=== PATIENT | female | born 1990 | race Caucasian/White ===

== ENCOUNTER 2022-05-06 11:05 | Emergency (ER) | payer OTHER, BC, SELFPAY ==
[2022-05-06 11:32] VITALS: BP 150/94; PULSE 85; RESP 16; TEMP 36.8; O2SAT 100
--- NOTE | 2022-05-06 12:19 | ED.GENADULT ---
HPI - General Adult General Chief complaint: Upper Respiratory Infection Stated complaint: Headache,Fatique Source: patient Mode of arrival: ambulatory Limitations: no limitations History of Present Illness HPI narrative: Patient presents for evaluation of sick symptoms for last 2 days. Symptoms include fatigue, body aches, neck soreness and sore throat. She denies any fever, chills, nausea, vomiting, significant cough, shortness of breath. No specific sick contacts to her knowledge however she does work in a school. No personal history of COVID. She has received COVID vaccination. She took some ibuprofen which did seem to help her symptoms. She is requesting a flu test. No additional complaints or concerns. Related Data Home Medications Medication Instructions Recorded Confirmed norethindrone 1 mg-ethinyl 1 tablet PO DAILY 01/03/21 05/06/22 estradiol 20 mcg (24)-iron 75 mg (4) tablet (Patricia 24 Fe) Allergies Allergy/AdvReac Type Severity Reaction Status Date / Time No Known Allergies Allergy Verified 05/06/22 11:28 Review of Systems Review of Systems: CONSTITUTIONAL: Reports fatigue.Denies fever, chills, or sweats. EYES: Denies visual changes, redness, or discharge. ENT: Reports sore throat. Denies otalgia. CARDIOVASCULAR: Denies chest pain, palpitations, or edema. RESPIRATORY: Denies cough or dyspnea. GASTROINTESTINAL: Denies abdominal pain, nausea, vomiting, or diarrhea. GENITOURINARY: Denies dysuria or hematuria. SKIN: Denies rash or itching. MUSCULOSKELETAL: Reports generalized body aches and neck soreness . NEUROLOGIC: Denies headache, numbness, dizziness, or weakness. PSYCHIATRIC: Denies anxiety or depression. [facility] Past Medical History Medical History Anxiety Surgical History Surgical History H/O dilation and curettage History of hip surgery History of tonsillectomy and adenoidectomy Family History Family History Mother Hypertension Father Patient's father is in good health Sibling Patient's sister is in good health Family history of allergic disorder Social History Social History Smoking status: Never smoker Second hand tobacco smoke exposure: No Alcohol intake: never Substance use: never Living arrangements: with family Gender identity (if verbalized by the patient): Female Sexual Orientation (if Verbalized by the Patient): Straight or Heterosexual Spiritual care concerns: No Exam Narrative: GENERAL: Well-appearing, well-nourished, and in no acute distress. HEAD: Normocephalic, atraumatic. EYES: PERRLA and EOMI. ENT: Nares clear, no rhinorrhea or epistaxis. Mucous membranes moist. Tonsils are absent. Posterior pharyngeal erythema present. Bilateral TMs pearly mota nonbulging NECK: Supple. No adenopathy or masses. No carotid bruits or JVD CHEST: Clear to auscultation. No respiratory distress. No wheezes rales or rhonchi HEART: Regular rate and rhythm. No murmur heard. Normal peripheral pulses. ABDOMEN: Soft, nontender, nondistended, normal active bowel sounds. EXTREMITIES: Normal range of motion. No edema. SKIN: Warm, dry, no rash. NEURO: No focal deficits. Alert and oriented x3. PSYCH: Normal mood and affect. Course Course Emergency Course: This is a 31-year-old female who presented for evaluation of sick symptoms. Flu and strep were both negative. Exam is consistent with acute viral syndrome. Advised on tvnp-pki-bprqjqy agents which may assist with symptoms including ibuprofen and Cepacol. Increase hydration. Follow up outpatient for further evaluation treatment go to the ER for worsening symptoms. Patient is in agreement plan of care. Level of Care: Express Care Visit Vital Signs Vi
== END 2022-05-06 12:40 | disposition home or self-care (01) ==
PROVIDERS: Emergency Provider Nurse Practitioner; PCP Internal Medicine
DX: B34.9 Viral infection, unspecified (principal)
CPT/HCPCS: 87081; 87804; 87880; 99213; G0463

== ENCOUNTER 2022-09-28 13:03 | Outpatient (CLI) | payer OTHER, BC, SELFPAY ==
--- NOTE | ~2022-09-28 | MR_ITS ---
EXAMINATION: MR hip RT w con DATE: 09/28/2022 14:41 INDICATION: Right hip pain TECHNIQUE: Magnetic resonance (MR) arthrogram of the right hip was performed following intra-articula r gadolinium contrast injection and without intravenous contrast. Details of the hip joint injection have been dictated separately. Sequences included small field of view of the right hip with axial and sagittal T1-weighted FS SE and T2-weighted FS FSE and coronal T1-weighted SE and T2-weighted FS FSE . Additional T1-weighted FGRE images in a radial pattern oriented orthogonal to the acetabular rim we re obtained for evaluation of the labrum. COMPARISON: None. FINDINGS: Bones/labrum/cartilage: Alignment is normal. There does appear to be bilateral anterior acetabular over coverage. There appea rs to be decreased anterosuperior right femoral head neck offset with minimal cystic change at the an terosuperior femoral head neck junction. Normal bone marrow signal. No fracture, avascular necrosis o r pathologic marrow replacing process. Amorphous mild increased T2 signal and minimally increased T1 signal at the right anterior acetabular labrum consistent with likely degeneration. No evident linear fluid or contrast signal extending to contact the articular surface to suggest a more well-defined l abral tear. Articular cartilage is normal. On the larger zdsiq-ev-hnuo images of the pelvis there are linear likely suture anchor tracks along the anterior rim of the left acetabulum suggesting prior le ft-sided acetabular labral repair. Fluid: Physiologic amount fluid in the left hip joint with large amount of injected contrast in the right hi p joint space. No loose osteochondral bodies identified at either hip. No bursitis or other abnormal fluid collections. Soft tissues: Normal and symmetric muscle bulk and signal in the pelvis and visualized proximal thighs. The bilater al iliopsoas, gluteal and proximal hamstring tendons are normal. 6 mm nabothian cyst at the cervix. T here is a tampon within the vaginal vault. Limited evaluation of visceral organs of the pelvis is oth erwise unremarkable. No pathologically enlarged pelvic/inguinal lymphadenopathy. IMPRESSION: 1. 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 2. Decreased anterosuperior right femoral head neck offset and bilateral increased anterior acetabula r over coverage, the former predisposing towards cam-type femoral acetabular impingement in the latte r predisposing towards pincer-type femoral acetabular impingement. Correlate for signs/symptoms of im pingement. 3. Suggestion of suture anchors related to a prior anterior left acetabular labral repair on the larg er sykad-po-jvjv images. Reviewed, dictated and finalized at location A. IMPRESSION: 1. 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 2. Decreased anterosuperior right femoral head neck offset and bilateral increa sed anterior acetabular over coverage, the former predisposing towards cam-type femoral acetabular impingement in the latter predisposing towards pincer-type femoral acetabular impingement. Correlate for signs/symptoms of impingement. 3. Suggestion of suture anchors related to a prior anterior left acetabular lab ral repair on the larger lwyak-je-yovo images.
--- NOTE | ~2022-09-28 | XR_ITS ---
EXAMINATION: XR fl inj hip RT for MR/CT DATE: 09/28/2022 14:14 INDICATION: Chronic right hip pain. TECHNIQUE: A time-out was performed to verify the patient's name, date of , and procedure to b e performed. The procedure including the risks, benefits, and alternatives was discussed with the pat ient. Risks discussed included bleeding and infection. The patient understood the risks and agreed to proceed. The skin overlying the right hip joint was prepped and draped in usual sterile fashion. A nesthetic was administered with 1% lidocaine subcutaneously. A 22 G needle was advanced under fluoro scopic guidance into the joint. Injection of 1 mL of Omnipaque 240 confirmed intra-articular positio n of the needle. Subsequently, injectate consisting of 12 mL of 2:1:1 mixture of sterile saline:Omni paque 240:1% lidocaine mixed 200:1 with 529 mg/mL Multihance gadolinium contrast was injected with in tra-articular position confirmed with intermittent fluoroscopy. The needle was removed and the entry site was cleaned and dressed. There were no immediate complications. Fluoroscopy exposure time was 0 .1 minutes. The total number of images was 7. FINDINGS: Real-time fluoroscopy demonstrates the needle in the right hip joint. Patient's pain prior to procedure:2/10. Patient's pain following the procedure: 2/10. IMPRESSION: 1. Successful right hip joint injection of dilute gadolinium contrast mixture for subsequent MRI arth rogram which will be dictated separately. Reviewed, dictated and finalized at location A. IMPRESSION: 1. Successful right hip joint injection of dilute gadolinium contrast mixture f or subsequent MRI arthrogram which will be dictated separately.
== END 2022-09-28 13:04 | disposition home or self-care (01) ==
PROVIDERS: PCP Internal Medicine
DX: M25.551 Pain in right hip (principal)
CPT/HCPCS: 20610; 73722; 77002; A9577; Q9966

== ENCOUNTER 2022-10-06 02:31 | Day surgery (SDC) | payer OTHER, BC, SELFPAY ==
[2022-10-04 11:57] VITALS: BMI 38.4
--- NOTE | 2022-10-04 12:01 | PC.NURSE ---
Report to the Outpatient Waiting Room, entrance under the green pavilion located off [facility], at time 12:30 on date 10/06/22. Planned Procedure Time: 2:30. Time changes happen often and if your time is changed the preop area will call you the afternoon before. - You and your visitor will be asked to self-screen and do not enter if you have any COVID symptoms. - A mask is optional within the hospital at this time. Patients may have clear liquids (water, carbonated beverages, clear teas, apple juice) until 3 hours prior to surgery with a maximum of 20 ounces. - No food from midnight until time of surgery Take the following medications with a SIP of water the morning of surgery: N/A DO NOT STOP ANY OF YOUR OTHER PRESCRIPTION MEDICATIONS PRIOR TO SURGERY ?EXCEPT THE FOLLOWING Medications to discontinue per physician: N/A Date to take last dose: N/A Please no make-up, nail telugu, hairspray, perfume, deodorant, or body powder the day of surgery. No jewelry (including any body piercings) or valuables the day of surgery, leave them at home. Please take a shower or bath the night before, or the morning of, surgery with an antibacterial soap. Wear comfortable, loose fitting clothing. - Jewelry must be removed prior to entering the operating room. Rings and piercings that are not removed may be cut off. - The hospital will not accept responsibility for valuables. - Please leave all valuables, including medications, at home the day of surgery. If you are going home after surgery, a licensed four horse hitch driver must drive you home. - NO public transportation without another adult if you receive anesthesia. - We recommend that an adult stay with you for 24 hours following discharge. - We also recommend that you do not drive, make important decision, drink alcoholic beverages, or take any drugs that were not prescribed by your health care provider for at least 24 hours after your discharge time. Follow any additional instructions given to you from your surgeon. If you or anyone in your household have experienced Covid symptoms in the past week, please notify your surgeon or the nurse liaison at the phone number below for possible testing. Telephone instructions given to PT - LEIDY TRAN and asked if any additional questions and then verbalized understanding. Patient advised to call surgeon office or pre surgery nurse liaison [phone] if any additional questions.
--- NOTE | 2022-10-05 07:51 | PM.IMHP ---
H&P: HPI History of Present Illness Date/Time: 10/05/22 07:51 Chief Complaint: excessive bleeding Narrative: this is a 31-year-old female with excessive bleeding. She had an ultrasound which showed thickened endometrium with some blood flow. Risks and benefits of hysteroscopy and dilatation curettage reviewed in great details. She received the ACOG handouts entitled hysteroscopy as well as dilatation curettage respectively. She had all questions answered and asked to proceed PMFSH Past Medical History Medical History Anxiety Surgical History Surgical History H/O dilation and curettage History of hip surgery History of tonsillectomy and adenoidectomy Family History Family History Mother Hypertension Father Patient's father is in good health Sibling Patient's sister is in good health Family history of allergic disorder Social History Social History Smoking status: Never smoker Second hand tobacco smoke exposure: No Alcohol intake: never Substance use: never Substance use type: does not use Lack of Transportation: No Lack of Food: Never True Current Housing: I Have Housing Concerned About Future Housing: No Difficulty Paying Gas/Electric Bills: No Difficulty Paying for Meds: No Currently Unemployed: No Education: Bachelor's Degree Difficulty w/ Childcare or Family Care: No Living arrangements: with family Gender identity (if verbalized by the patient): Female Sexual Orientation (if Verbalized by the Patient): Straight or Heterosexual Spiritual care concerns: No Meds Home Medications and Allergies Home Medications Medication Instructions Recorded Confirmed Type semaglutide (weight loss) 0.25 0.25 mg subcut WEEKLY 10/04/22 10/04/22 History mg/0.5 mL subcutaneous pen injector (Wedeannevy) sertraline 100 mg tablet 100 mg PO HS 10/04/22 10/04/22 History Allergies Allergy/AdvReac Type Severity Reaction Status Date / Time No Known Allergies Allergy Verified 10/04/22 11:56 Exam Const: General: cooperative, healthy appearing, comfortable and well groomed Nutritional Appearance: average body habitus Orientation/consciousness: oriented to person, oriented to place and oriented to time HENMT: Head: normal to inspection Resp: Effort & Inspection: normal respiratory effort Cardio: Rate: regular rate Rhythm: regular rhythm Heart sounds: S1 normal heart sound present and S2 normal heart sound present GI: Inspection: normal to inspection : External Female Exam: normal external appearance Speculum Exam - Vagina: normal appearance of the vagina Speculum Exam - Cervix: normal appearance of the cervix Bimanual exam- vagina & uterus: uterine size normal Bimanual Exam- Adnexa, other: normal adnexae Assessment and Plan Assessment and plan (1) Excessive bleeding: Code(s): R58 - Hemorrhage, not elsewhere classified Status: Acute Plan hysteroscopy/dilatation curettage
--- NOTE | 2022-10-05 13:55 | WPDANESEPPF ---
Anes - Initial Pre Proc Eval Procedure: Operation Date: 10/06/22 14:30 Proposed Procedures p Hysteroscopy, Dilation and Curettage - Ernie Hilario MD Date/Time: 10/05/22 13:55 Surgeon: Ernie Hilario MD Pre Op Diagnosis: excessive irregular bleeding Patient Data Age: 31 Gender: F Height: 1.57 m Weight: 95.25 kg Allergies Allergy/AdvReac Type Severity Reaction Status Date / Time No Known Allergies Allergy Verified 10/04/22 11:56 Home Medications Medication Instructions Recorded Confirmed Type semaglutide (weight loss) 0.25 0.25 mg subcut WEEKLY 10/04/22 10/04/22 History mg/0.5 mL subcutaneous pen injector (Wegovy) sertraline 100 mg tablet 100 mg PO HS 10/04/22 10/04/22 History hydrocodone 5 mg-acetaminophen 325 1 tablet PO Q4H PRN pain #20 tabs 10/06/22 Rx mg tablet Patient hx anesthesia problems: none Family hx anesthesia problems: none Results Review: All pre-operative results and documents have been reviewed as part of the pre-operative evaluation. FOR[facility]LY [facility] Past Medical History Medical History (Updated 10/05/22 @ 13:56 by Luke Roper MD) Anxiety Obesity, Class II, BMI 35-39.9 Surgical History Surgical History H/O dilation and curettage History of hip surgery History of tonsillectomy and adenoidectomy Family History Family History Mother Hypertension Father Patient's father is in good health Sibling Patient's sister is in good health Family history of allergic disorder Social History Social History Smoking status: Never smoker Second hand tobacco smoke exposure: No Alcohol intake: never Substance use: never Substance use type: does not use Lack of Transportation: No Lack of Food: Never True Current Housing: I Have Housing Concerned About Future Housing: No Difficulty Paying Gas/Electric Bills: No Difficulty Paying for Meds: No Currently Unemployed: No Education: Bachelor's Degree Difficulty w/ Childcare or Family Care: No Living arrangements: with family Gender identity (if verbalized by the patient): Female Sexual Orientation (if Verbalized by the Patient): Straight or Heterosexual Spiritual care concerns: No Anes - Eval Final PreProcedure Day of Procedure 10/05/22 13:55 Patient weight: overweight Heart: regular rate and rhythm Lungs: clear to auscultation and normal air movement Airway: Mallampati scale class II Neurological: alert and oriented Last oral intake: >/= 8 hours ASA classification: II Emergent: no Anesthetic plan: proceed Anesthesia type and monitoring: general GIVS and LMA Results Review: All pre-operative results and documents have been reviewed as part of the pre-operative evaluation. Informed Consent: The patient's anesthetic plan and its attendant risks and benefits were discussed with the patient/family/POA. Questions were solicited and answers provided to the satisfaction of the patient/family/POA.
--- NOTE | 2022-10-06 06:08 | WPDHPUPDATE1 ---
History and Physical Update Update Date/Time: 10/06/22 06:08 History and Physical has been reviewed, including an updated exam of the patient. There are NO changes in the patient's condition. Risks, benefits, and alternatives have been discussed and questions answered. Patient agrees to proceed with procedure.
[2022-10-06 12:19] VITALS: BP 160/124; PULSE 84; RESP 20; TEMP 36.7; O2SAT 100
[2022-10-06] MEDS: ACETAMINOPHEN 500 MG TABLET 1000 MG PO (12:35)
[2022-10-06] MEDS: LACTATED RINGERS 1,000 ML 30 ML IV CONT (12:37)
[2022-10-06 12:54] VITALS: BP 162/96
[2022-10-06] MEDS: LIDOCAINE HCL 1% LOCAL INJ 20 ML VIAL 10 ML INFILTRATE (13:27)
[2022-10-06 13:31] VITALS: BP 133/94; PULSE 76; RESP 16; O2SAT 94
--- NOTE | 2022-10-06 13:31 | W.PM.PROC2 ---
Procedure Note - Detailed Date of Procedure 10/06/22 Pre-op Diagnosis excessive irregular bleeding Post-op Diagnosis Same Procedure Performed Hysteroscopy / dilatation and curettage Surgeon Ernie Hilario MD Anesthesia MAC and Local Indications this is a 31-year-old female with irregular bleeding and thickened endometrium on ultrasound Findings irregular endometrial tissue with appearing tubal ostia Description of Procedure the patient was prepped draped in the sterile fashion placed dorsal position. Under excellent IV sedation weighted speculum placed fornix. Anterior lip of the cervix grasped with single-tooth tenaculum. 2.5cc of 1% xylocaine anesthesia placed at 2, 4, 8, 10:00 a.m. of the cervix. Uterus sounded to 8cm. Serial dilatation with fragmented dilators performed followed by passage of the the bead a hysteroscope using normal saline as visualizing medium. Thick irregular endometrial tissue was seen but no evidence of definitive pathology each fallopian tube os could be seen. The uterus was then scraped over the entire 360? with the IV to instrument. The instruments were withdrawn blood loss estimated at5cc. All sponge, needle, instrument counts were correct. There were no immediate complications Estimated Blood Loss 5 Drains No Packing No Pathology Yes Complications No immediate complications Condition Stable Disposition PACU
[2022-10-06 14:00] VITALS: BP 160/108; PULSE 68; RESP 16
[2022-10-06 14:30] VITALS: BP 152/98; PULSE 72; RESP 20
[2022-10-06] MEDS: oxyCODONE HCL (*CRX) 5 MG TAB IR PO (14:36)
[2022-10-06 15:00] VITALS: BP 147/80; PULSE 80; RESP 20
== END 2022-10-06 15:10 | disposition home or self-care (01) ==
PROVIDERS: PCP Internal Medicine; Visit Provider Obstetrics & Gynecology
PROC: 0U5B8ZZ Destruction of Endometrium, Via Natural or Artificial Opening Endoscopic (ICD-10-PCS; CPT 58563; principal; 2022-10-06 14:30)
DX: N92.1 Excessive and frequent menstruation with irregular cycle (principal); F41.9 Anxiety disorder, unspecified
CPT/HCPCS: 58558; 88305; A9270; J2250; J2704; J3010; J7120

== ENCOUNTER 2023-01-26 16:20 | Emergency (ER) | payer OTHER, BC, SELFPAY ==
[2023-01-26 16:34] VITALS: BP 148/86; PULSE 87; RESP 16; TEMP 36.3; O2SAT 100
--- NOTE | 2023-01-26 16:34 | ED.URI ---
HPI - URI/Sore Throat General Chief Complaint: Upper Respiratory Infection Stated Complaint: Strep test Time Seen by Provider: 01/26/23 16:35 Source: patient and RN notes reviewed Mode of arrival: ambulatory Limitations: no limitations History of Present Illness HPI Narrative: 32-year-old female presents with concern for exposure to strep throat. She reports she has exposure to strep throat at home, her daughter is positive. She reports she has been achy, had a headache, sore throat, runny nose. She has not taken any gdsy-owq-wneepbb medications for her symptoms MD elicited complaint: sore throat and rhinorrhea Related Data Allergies Allergy/AdvReac Type Severity Reaction Status Date / Time No Known Allergies Allergy Verified 12/20/22 14:20 Review of Systems Review of Systems: CONSTITUTIONAL: Denies malaise, chills, sweats, or fever. EYES: Denies visual changes, redness, or discharge. ENT: Reports rhinorrhea, sore throat. Denies congestion, sinus pain, otalgia CARDIOVASCULAR: Denies chest pain, palpitations, or edema. RESPIRATORY: Reports cough. Denies dyspnea. GASTROINTESTINAL: Denies abdominal pain, nausea, vomiting, diarrhea SKIN: Denies rash or itching. MUSCULOSKELETAL: Reports myalgia. NEUROLOGIC: Reports headache. All systems reviewed & are unremarkable except as noted in HPI and below PMFSH Past Medical History Medical History Anxiety Obesity, Class II, BMI 35-39.9 Surgical History Surgical History H/O dilation and curettage History of hip surgery History of tonsillectomy and adenoidectomy Family History Family History Mother Hypertension Father Patient's father is in good health Sibling Patient's sister is in good health Family history of allergic disorder Social History Social History Smoking status: Never smoker Second hand tobacco smoke exposure: No Alcohol intake: never Substance use: never Substance use type: does not use Lack of Transportation: No Lack of Food: Never True Current Housing: I Have Housing Concerned About Future Housing: No Difficulty Paying Gas/Electric Bills: No Difficulty Paying for Meds: No Currently Unemployed: No Education: Bachelor's Degree Difficulty w/ Childcare or Family Care: No Living arrangements: with family Gender identity (if verbalized by the patient): Female Sexual Orientation (if Verbalized by the Patient): Straight or Heterosexual Spiritual care concerns: No Comments At time of signature, agree with nursing past medical, surgical, social and family history. There is no relevant family history pertinent to the presenting complaint Exam Narrative: GENERAL: Well-appearing, well-nourished, and in no acute distress. HEAD: Normocephalic EYES: PERRLA, conjunctivae clear ENT: Nares clear. Mucous membranes moist. TM pearly mota with sharp light reflex bilaterally; no tragal tenderness. Oropharynx not erythematous without lesions. Tonsils not enlarged and without exudate, no drooling, no hoarseness, no trismus, uvula midline. NECK: Supple. No lymphadenopathy CHEST: Clear to auscultation, breath sounds equal. No wheezing, rhonchi, rales, or stridor. No respiratory distress, speaks in full sentences. HEART: Regular rate and rhythm. No murmur heard. SKIN: Warm, dry, no rash. NEURO: Alert and oriented x3. PSYCH: Normal mood and affect Course Course Emergency Course: Patient is aware of diagnosis, understands and agrees to treatment plan. Anticipatory guidance given. Patient agrees to follow-up as directed and is aware of reasons to seek care at the emergency department. Portions of this record may have been created with voice recognition software Level of Care: Express Care Visit Vital Signs Vital
== END 2023-01-26 16:47 | disposition home or self-care (01) ==
PROVIDERS: Emergency Provider Nurse Practitioner; PCP Internal Medicine
DX: J06.9 Acute upper respiratory infection, unspecified (principal); E66.9 Obesity, unspecified; Z68.34 Body mass index [BMI] 34.0-34.9, adult
CPT/HCPCS: 87081; 87880; 99213; G0463

== ENCOUNTER 2023-04-06 05:37 | Day surgery (SDC) | payer OTHER, BC, SELFPAY ==
--- NOTE | 2023-04-04 14:03 | PM.IMHP ---
H&P: HPI History of Present Illness Date/Time: 04/04/23 14:03 Chief Complaint: First-trimester incomplete Narrative: 32-year-old 3 para 2 in her 1st trimester with vaginal bleeding and abnormal by ultrasound imaging. The patient is here for suction dilatation curettage she continues to bleed. Risks and benefits reviewed [facility] Past Medical History Medical History Anxiety Obesity, Class II, BMI 35-39.9 Surgical History Surgical History H/O dilation and curettage History of hip surgery History of tonsillectomy and adenoidectomy Family History Family History Mother Hypertension Father Patient's father is in good health Sibling Patient's sister is in good health Family history of allergic disorder Social History Social History Smoking status: Never smoker Second hand tobacco smoke exposure: No Alcohol intake: never Substance use: never Substance use type: does not use Lack of Transportation: No Lack of Food: Never True Current Housing: I Have Housing Concerned About Future Housing: No Difficulty Paying Gas/Electric Bills: No Difficulty Paying for Meds: No Currently Unemployed: No Education: Bachelor's Degree Difficulty w/ Childcare or Family Care: No Living arrangements: with family Gender identity (if verbalized by the patient): Female Sexual Orientation (if Verbalized by the Patient): Straight or Heterosexual Spiritual care concerns: No Meds Home Medications and Allergies Home Medications Medication Instructions Recorded Confirmed Type sertraline 100 mg tablet 100 mg PO HS #90 tabs 10/26/22 01/26/23 Rx lisinopril 20 mg tablet 20 mg PO DAILY #90 tabs 12/20/22 01/26/23 Rx benzonatate 200 mg capsule 200 mg PO TID PRN cough #30 caps 02/01/23 Rx Allergies Allergy/AdvReac Type Severity Reaction Status Date / Time No Known Allergies Allergy Verified 12/20/22 14:20 Exam Const: General: cooperative, healthy appearing and comfortable Orientation/consciousness: oriented to person, oriented to place and oriented to time HENMT: Head: normal to inspection Resp: Effort & Inspection: normal respiratory effort Cardio: Rate: regular rate Rhythm: regular rhythm Heart sounds: S1 normal heart sound present and S2 normal heart sound present GI: Inspection: normal to inspection : External Female Exam: normal external appearance Speculum Exam - Vagina: normal appearance of the vagina and vaginal bleeding Speculum Exam - Cervix: normal appearance of the cervix Bimanual exam- vagina & uterus: enlarged Bimanual Exam- Adnexa, other: normal adnexae Assessment and Plan Assessment and plan (1) Incomplete : Code(s): O03.4 - Incomplete spontaneous without complication Status: Acute Plan Suction dilatation curettage
[2023-04-04 15:05] VITALS: BMI 36.6
--- NOTE | 2023-04-04 15:10 | PC.NURSE ---
Report to the Outpatient Waiting Room, entrance under the green pavilion located off [facility], at time 1100 on date 04/06/23. Planned Procedure Time: 1300. Time changes happen often and if your time is changed the preop area will call you the afternoon before. - You and your visitor will be asked to self-screen and do not enter if you have any COVID symptoms. - A mask is optional within the hospital at this time. Patients may have clear liquids (water, carbonated beverages, clear teas, apple juice) until 3 hours prior to surgery with a maximum of 20 ounces. - No food from midnight until time of surgery Take the following medications with a SIP of water the morning of surgery: LABETALOL, SERTRALINE DO NOT STOP ANY OF YOUR OTHER PRESCRIPTION MEDICATIONS PRIOR TO SURGERY ?EXCEPT THE FOLLOWING Medications to discontinue per physician: VITAMINS Date to take last dose: NO MORE UNTIL AFTER SURGERY Please no make-up, nail georgian, hairspray, perfume, deodorant, or body powder the day of surgery. No jewelry (including any body piercings) or valuables the day of surgery, leave them at home. Please take a shower or bath the night before, or the morning of, surgery with an antibacterial soap. Wear comfortable, loose fitting clothing. - Jewelry must be removed prior to entering the operating room. Rings and piercings that are not removed may be cut off. - The hospital will not accept responsibility for valuables. - Please leave all valuables, including medications, at home the day of surgery. If you are going home after surgery, a licensed lease purchase driver must drive you home. - NO public transportation without another adult if you receive anesthesia. - We recommend that an adult stay with you for 24 hours following discharge. - We also recommend that you do not drive, make important decision, drink alcoholic beverages, or take any drugs that were not prescribed by your health care provider for at least 24 hours after your discharge time. Follow any additional instructions given to you from your surgeon. If you or anyone in your household have experienced Covid symptoms in the past week, please notify your surgeon or the nurse liaison at the phone number below for possible testing. Telephone instructions given to PT - LEIDY TRAN and asked if any additional questions and then verbalized understanding. Patient advised to call surgeon office or pre surgery nurse liaison [phone] if any additional questions.
--- NOTE | 2023-04-06 06:41 | WPDHPUPDATE1 ---
History and Physical Update Update Date/Time: 04/06/23 06:41 History and Physical has been reviewed, including an updated exam of the patient. There are NO changes in the patient's condition. Risks, benefits, and alternatives have been discussed and questions answered. Patient agrees to proceed with procedure.
[2023-04-06 11:07] VITALS: BP 134/86; PULSE 72; RESP 16; TEMP 36.5; O2SAT 100
[2023-04-06] MEDS: ACETAMINOPHEN 500 MG TABLET 1000 MG PO (11:59)
--- NOTE | 2023-04-06 11:59 | WPDANESEPPF ---
Anes - Initial Pre Proc Eval Procedure: Operation Date: 04/06/23 13:00 Proposed Procedures p Suction Dilatation and Curettage - Ernie Hilario MD Date/Time: 04/06/23 11:59 Surgeon: Ernie Hilario MD Pre Op Diagnosis: missed AB Patient Data Age: 32 Gender: F Height: 1.57 m Weight: 90.7 kg Allergies Allergy/AdvReac Type Severity Reaction Status Date / Time No Known Allergies Allergy Verified 04/04/23 15:04 Home Medications Medication Instructions Recorded Confirmed Type sertraline 100 mg tablet 100 mg PO HS #90 tabs 10/26/22 04/04/23 Rx labetalol 100 mg tablet 100 mg PO BID 04/04/23 04/04/23 History jamxprbr-kol-qzhdw 120 mcg-dha 25 1 tablet PO DAILY 04/04/23 04/04/23 History mg-herb no.293 66.7 mg chew tablet (Alive Premium ) hydrocodone 5 mg-acetaminophen 325 1 tablet PO Q4H PRN pain #20 tabs 04/06/23 Rx mg tablet Patient hx anesthesia problems: post op nausea/vomiting Family hx anesthesia problems: none Results Review: All pre-operative results and documents have been reviewed as part of the pre-operative evaluation. [facility] Past Medical History Medical History Anxiety Obesity, Class II, BMI 35-39.9 Surgical History Surgical History H/O dilation and curettage History of hip surgery History of tonsillectomy and adenoidectomy Family History Family History Mother Hypertension Father Patient's father is in good health Sibling Patient's sister is in good health Family history of allergic disorder Social History Social History Smoking status: Never smoker Second hand tobacco smoke exposure: No Alcohol intake: never Substance use: never Substance use type: does not use Lack of Transportation: No Lack of Food: Never True Current Housing: I Have Housing Concerned About Future Housing: No Difficulty Paying Gas/Electric Bills: No Difficulty Paying for Meds: No Currently Unemployed: No Education: Bachelor's Degree Difficulty w/ Childcare or Family Care: No Living arrangements: with family Gender identity (if verbalized by the patient): Female Sexual Orientation (if Verbalized by the Patient): Straight or Heterosexual Spiritual care concerns: No Anes - Eval Final PreProcedure Day of Procedure 04/06/23 11:59 Patient weight: obese Heart: regular rate and rhythm Lungs: clear to auscultation Airway: Mallampati scale class II Neurological: alert and oriented Last oral intake: >/= 8 hours ASA classification: II Emergent: no Anesthetic plan: proceed Anesthesia type and monitoring: general GIVS and standard monitoring Results Review: All pre-operative results and documents have been reviewed as part of the pre-operative evaluation. Informed Consent: The patient's anesthetic plan and its attendant risks and benefits were discussed with the patient/family/POA. Questions were solicited and answers provided to the satisfaction of the patient/family/POA.
[2023-04-06 12:13] VITALS: BMI 36.9
[2023-04-06] MEDS: LACTATED RINGERS 1,000 ML 30 ML IV CONT (12:16)
[2023-04-06 12:24] LABS: Hematocrit 39.7 % (37.0-47.0); Hemoglobin 12.7 g/dL (12.0-15.0)
--- NOTE | 2023-04-06 13:42 | W.PM.PROC2 ---
Procedure Note - Detailed Date of Procedure 04/06/23 Pre-op Diagnosis missed AB Post-op Diagnosis Same Procedure Performed Suction dilatation and curettage Surgeon Ernie Hilario MD Anesthesia MAC and Local Indications This is a 32-year-old multiparous patient with 1st trimester with incomplete AB Findings Uterus sounded to 10cm. Tissue consistent with products of conception Description of Procedure Patient is prepped draped sterile fashion placed in the dorsal lithotomy position. Under excellent IV sedation weighted speculum placed in posterior fornix of vagina. Anterior lip of the cervix grasped with a single-tooth tenaculum. 2.5cc 1% xylocaine anesthesia placed at 2, 4, 8, 10:00 a.m. of the cervix. Uterus sounded 10cm. Serial dilatation with fragmented dilators performed followed by passage of the 10. Suction curette. Minimal tissue was able to be removed. The instruments withdrawn after good grating sound was heard patient went recovery in satisfactory condition and was to receive RhoGAM all sponge, needle, instrument counts were correct. Estimated Blood Loss 25 Drains No Packing No Pathology Yes Complications No immediate complications Condition Stable Disposition PACU
[2023-04-06 13:45] VITALS: BP 121/73; PULSE 76; RESP 12; O2SAT 95
[2023-04-06] MEDS: fentaNYL CITRATE INJ (*CRX) 100 MCG/2 ML VIAL 25 MCG IV PUSH (14:03)
[2023-04-06 14:15] VITALS: BP 127/72; PULSE 80
[2023-04-06] MEDS: RHO(D) IMMUNE GLOBULIN 300 MCG/2 ML SYRINGE IM (14:15)
[2023-04-06 14:45] VITALS: BP 134/74; PULSE 81
== END 2023-04-06 15:07 | disposition home or self-care (01) ==
PROVIDERS: Anesthesiology; PCP Internal Medicine; Visit Provider Obstetrics & Gynecology
PROC: (CPT 59820; principal; 2023-04-06 13:00)
DX: O02.1 Missed abortion (principal)
CPT/HCPCS: 59820; 36415; 85014; 85018; 85461; 86850; 86900; 86901; 88305; 90384; A9270; J2250; J2405; J2704; J2790; J3010; J7120

== ENCOUNTER 2023-07-14 10:22 | Emergency (ER) | payer OTHER, BC, SELFPAY ==
[2023-07-14 10:34] VITALS: BP 112/92; PULSE 65; RESP 18; TEMP 36.6; O2SAT 100
--- NOTE | 2023-07-14 10:44 | ED.URI ---
HPI - URI/Sore Throat General Chief Complaint: Upper Respiratory Infection Stated Complaint: COUGH/HEADACHE/CONGESTION Time Seen by Provider: 07/14/23 10:44 Source: patient Mode of arrival: ambulatory Limitations: no limitations History of Present Illness HPI Narrative: 32-year-old female presents with complaint of nasal congestion, sinus pressure, postnasal drainage, intermittent sore throat, fatigue for 8 days. Afebrile. Patient's child tested positive for influenza, requesting flu test. Taking qrdd-ouu-yecgnmg sinus medications without relief of symptoms. All systems reviewed and negative except as noted above. Related Data Home Medications Medication Instructions Recorded Confirmed labetalol 100 mg tablet 100 mg PO BID 04/04/23 04/06/23 qdfxbwvl-wwz-qltmq 120 mcg-dha 25 1 tablet PO DAILY 04/04/23 04/06/23 mg-herb no.293 66.7 mg chew tablet (Alive Premium ) Allergies Allergy/AdvReac Type Severity Reaction Status Date / Time No Known Allergies Allergy Verified 04/06/23 12:12 Review of Systems Review of Systems: CONSTITUTIONAL: Denies fever, chills, or sweats. reports fatigue. EYES: Denies visual changes, redness, or discharge. ENT: Reports rhinorrhea, congestion, sore throat. Denies otalgia. CARDIOVASCULAR: Denies chest pain, palpitations, or edema. RESPIRATORY: Reports cough. Denies dyspnea. GASTROINTESTINAL: Denies abdominal pain, nausea, vomiting, or diarrhea. GENITOURINARY: Denies dysuria or hematuria. SKIN: Denies rash or itching. MUSCULOSKELETAL: Denies back pain, joint pain, or myalgia. NEUROLOGIC: Denies headache, numbness, or weakness. PSYCHIATRIC: Denies anxiety or depression. All other systems reviewed are negative, except as documented in HPI. [facility] Past Medical History Medical History Anxiety Obesity, Class II, BMI 35-39.9 Surgical History Surgical History H/O dilation and curettage History of hip surgery History of tonsillectomy and adenoidectomy Family History Family History Mother Hypertension Father Patient's father is in good health Sibling Patient's sister is in good health Family history of allergic disorder Social History Social History Smoking status: Never smoker Second hand tobacco smoke exposure: No Alcohol intake: never Substance use: never Substance use type: does not use Lack of Transportation: No Lack of Food: Never True Current Housing: I Have Housing Concerned About Future Housing: No Difficulty Paying Gas/Electric Bills: No Difficulty Paying for Meds: No Currently Unemployed: No Education: Bachelor's Degree Difficulty w/ Childcare or Family Care: No Living arrangements: with family Gender identity (if verbalized by the patient): Female Sexual Orientation (if Verbalized by the Patient): Straight or Heterosexual Spiritual care concerns: No Comments At time of signature, agree with nursing past medical, surgical, social and family history. There is no relevant family history pertinent to the presenting complaint. Exam Narrative: GENERAL: This is a well-nourished, well-developed patient, in no apparent distress. HEAD: normocephalic, atraumatic. EYES: PERRL. Sclera clear/white. Vision is grossly intact. EARS: External ears normal, auditory canals clear and without drainage, TMs normal without perforation. Hearing grossly intact. NOSE: External nose normal with purulent nasal drainage, erythema and swelling to bilateral nares. Tenderness to bilateral maxillary sinus. THROAT: Mucous membranes moist, Postnasal drainage. NECK: Neck supple, non-tender without lymphadenopathy, masses or thyromegaly. CARDIOVASCULAR: Regular rate and rhythm without murmurs, gallops, or rub
== END 2023-07-14 10:57 | disposition home or self-care (01) ==
PROVIDERS: Emergency Provider Nurse Practitioner Family; PCP Internal Medicine
DX: J01.90 Acute sinusitis, unspecified (principal); E66.9 Obesity, unspecified; Z68.36 Body mass index [BMI] 36.0-36.9, adult
CPT/HCPCS: 87804; 99213; G0463

== ENCOUNTER 2023-10-01 07:58 | Emergency (ER) | payer OTHER, BC, SELFPAY ==
--- NOTE | ~2023-10-01 | XR_ITS ---
XR ankle LT min 3V 10/01/2023 08:42 Indication: Left ankle pain after fall Procedure: 4 views left ankle Comparison: 06/07/2019 Findings: There is a small osteochondroma originating from the proximal aspect of the fifth metatarsa l with adjacent ossific density. These findings are unchanged compared with 06/07/2019. No acute frac ture, subluxation or dislocation. Ankle mortise intact. No significant soft tissue abnormality. No fo reign body. Talar dome is unremarkable. Impression: 1: No acute fracture. Reviewed, dictated and finalized at location B. Impression: 1: No acute fracture.
[2023-10-01 08:03] VITALS: BP 132/99; PULSE 82; RESP 17; TEMP 36.4; O2SAT 100
--- NOTE | 2023-10-01 08:21 | ED.LOWEXIN ---
HPI - Extremity Injury (Lower) General Chief Complaint: Extremity Injury, Lower Stated Complaint: left ankle injury Time Seen by Provider: 10/01/23 08:20 Source: patient and other Mode of arrival: ambulatory Limitations: no limitations History of Present Illness HPI Narrative: Patient is complaining of left lateral ankle pain after she tripped and fell down 2 steps. She heard a pop. No paresthesias. She has not yet taken anything for pain. She describes the pain as a throbbing located just behind the lateral malleolus. Pain radiates slightly superiorly though not beyond mid calf. Related Data Home Medications Medication Instructions Recorded Confirmed magnesium citrate 100 mg tablet 100 mg PO DAILY 08/27/23 08/27/23 Allergies Allergy/AdvReac Type Severity Reaction Status Date / Time No Known Allergies Allergy Verified 10/01/23 07:59 [facility] Past Medical History Medical History Anxiety Obesity, Class II, BMI 35-39.9 Surgical History Surgical History H/O dilation and curettage History of hip surgery History of tonsillectomy and adenoidectomy Family History Family History Mother Hypertension Father Patient's father is in good health Sibling Patient's sister is in good health Family history of allergic disorder Social History Social History Smoking status: Never smoker Second hand tobacco smoke exposure: No Alcohol intake: never Substance use: never Substance use type: does not use Lack of Transportation: No Lack of Food: Never True Current Housing: I Have Housing Concerned About Future Housing: No Difficulty Paying Gas/Electric Bills: No Difficulty Paying for Meds: No Currently Unemployed: No Education: Bachelor's Degree Difficulty w/ Childcare or Family Care: No Living arrangements: with family Gender identity (if verbalized by the patient): Female Sexual Orientation (if Verbalized by the Patient): Straight or Heterosexual Spiritual care concerns: No Exam Narrative: GENERAL: Well-appearing, well-nourished, and in no acute distress. HEAD: Normocephalic, atraumatic. EYES: Non injected, non icteric ENT: Nares clear, no rhinorrhea or epistaxis. NECK: Supple. CHEST: Speaking in full sentences. No respiratory distress. HEART: Regular rate and rhythm. . ABDOMEN: Soft, nondistended. EXTREMITIES: Normal range of motion. 1+ edema left foot. Warm and well perfused. Demonstrates 5/5 strength with left ankle plantar flexion, dorsiflexion, eversion, and inversion. Tenderness to palpation at the posterior edge/tip of lateral malleolus. No TTP of proximal tiba/fibula. Compartments soft. SKIN: Warm, dry, no rash. NEURO: No focal deficits. Alert and oriented x3. Sensation intact throughout foot. PSYCH: Normal mood and affect. Course Vital Signs Vital signs: Vital Signs Temperature 97.6 F 10/01/23 08:03 Pulse Rate 82 10/01/23 08:03 Respiratory Rate 17 10/01/23 08:03 Blood Pressure 132/99 H 10/01/23 08:03 Pulse Oximetry 100 10/01/23 08:03 Oxygen Delivery Room Air 10/01/23 08:03 Temperature 97.6 F 10/01/23 08:03 Pulse Rate 73 10/01/23 09:21 Respiratory Rate 17 10/01/23 09:21 Blood Pressure 121/88 10/01/23 09:21 Pulse Oximetry 99 10/01/23 09:21 Oxygen Delivery Room Air 10/01/23 08:03 MDM - Extremity Injury (Lower) MDM Narrative Medical decision making narrative: Patient presents with left ankle pain after accidentally falling down 2 steps and hearing a pop earlier today. TTP at Lateral malleolus. In the emergency department she is afebrile with vital signs notable for an elevated diastolic blood pressure. Will defer more proximal imaging given absence of pain there unless initial i
[2023-10-01] MEDS: ACETAMINOPHEN 325 MG TABLET 650 MG PO (08:32)
[2023-10-01] MEDS: HYDROcodone/acetaminophen (*CRX) 5-325 MG TABLET 1 TAB PO (08:33)
[2023-10-01 09:21] VITALS: BP 121/88; PULSE 73; RESP 17; O2SAT 99
== END 2023-10-01 09:28 | disposition home or self-care (01) ==
PROVIDERS: Emergency Provider Student in an Organized Health Care Education/Training Program; PCP Internal Medicine
DX: S93.402A Sprain of unspecified ligament of left ankle, initial encounter (principal); E66.9 Obesity, unspecified; Z68.36 Body mass index [BMI] 36.0-36.9, adult; W10.9XXA Fall (on) (from) unspecified stairs and steps, initial encounter
CPT/HCPCS: 73610; 99283; A9270

== ENCOUNTER 2024-12-25 15:39 | Emergency (ER) | payer BC, SELFPAY ==
--- NOTE | ~2024-12-25 | XR_ITS ---
HISTORY: fell off chair COMPARISON: 10/01/2023 TECHNIQUE: 3 views of the left ankle were performed FINDINGS: No acute fracture or dislocation. Redemonstration of lateral soft tissue swelling. The ankle mortise is preserved. Bone mineralization is age-appropriate. IMPRESSION: Soft tissue swelling, without acute fracture. Reviewed, dictated and finalized at location A.
--- NOTE | ~2024-12-25 | XR_ITS ---
HISTORY: left foot pain, injury COMPARISON: 06/07/2019 TECHNIQUE: 3 views of the left foot were performed FINDINGS: Bipartite medial sesamoid of the great toe is identified. No acute fracture or dislocation is appreciated. No significant degenerative disease is noted. The base of the fifth metatarsal is intact. No calcaneal spur is noted. Soft tissue swelling of the forefoot. IMPRESSION: Soft tissue swelling without fracture. Reviewed, dictated and finalized at location A.
[2024-12-25 15:40] VITALS: BP 136/88; PULSE 88; RESP 16; O2SAT 99
--- OUTSIDE RECORDS SUMMARY | 2024-12-25 15:41 | XMS_ITS | Clinical Summary ---
Author Organization [facility] Address [address] [place] [address] Care Team Providers Care Farm Equipment Technician Name Role Phone Jerson Amol Landers DO Primary Care Provider Source Comments [facility],non-owned Affiliates and Associated Physician Practices is amultiple site organization consisting of ambulatory clinics and hospital sitesin [place], [place], [place] and [place]. This disclosure is being madepursuant to the Care Everywhere program and may not contain all information available regarding this patient. Last updated 18.[facility] Allergies No known active allergies Medications * Be aware that medications may not be up to date on this document. Alwaysverify current medications with the patient. sertraline (ZOLOFT) 100 MG tablet Take 100 mg by mouth once daily Active Social History Tobacco Use Types Packs/Day Years Used Date Smoking Tobacco: Never Smokeless Tobacco: Never Comments No Sex and Gender Information Value Date Recorded Sex Assigned at Not on file Legal Sex Female 12:49 PM CDT Gender Identity Not on file Sexual Orientation Not on file Last Filed Vital Signs Vital Sign Reading Time Taken Comments Blood Pressure 110/64 07/11/2018 3:23 PM [facility] Pulse 80 07/11/2018 3:23 PM [facility] Temperature 36.9 C (98.4 F) 07/11/2018 3:23 PM [facility] Respiratory Rate 16 07/11/2018 3:23 PM [facility] Oxygen Saturation 98% 07/11/2018 3:23 PM [facility] Inhaled Oxygen Concentration - - Weight 81.6 kg (180 lb) 07/11/2018 3:23 PM [facility] Height 157.5 cm (5' 2) 07/11/2018 3:23 PM [facility] Body Mass Index 32.92 07/11/2018 3:23 PM [facility] Plan of Treatment Health Maintenance Due Date Last Done Comments HIV SCREENING 2005 HEPATITIS C SCREENING 10/02/2008 DTAP/TDAP/TD VACCINES (1 - Tdap) 2009 HEPATITIS B VACCINE (1 of 3 - 19+ 3-dose series) 2009 PAP SMEAR 10/08/2011 HPV VACCINE (1 - 3-dose SCDM series) 2017 COVID-19 VACCINE (3 - 2023-2 5 season) 2024 08/21/2020, 07/24/2020 DEPRESSION SCREENING 06/04/2024 INFLUENZA VACCINE (#1) 2025 03/11/2018 ZOSTER VACCINE (1 of 2) 2040 HIB VACCINE Aged Out No longer eligi ble based on patient's age to complete this topic MENINGOCOCCAL (Group B) VACCINE SHARED DECISION-MAKING Aged Out No longer eligible based on patient's age to complete this topic MENINGOCOCCAL GROUPS A/C/Y/W VACCINE Aged Out No longer eligible b ased on patient's age to complete this topic PNEUMOCOCCAL VACCINE Aged Out No long er eligible based on patient's age to complete this topic Insurance [facility] AETNA [facility] AETNA Care Teams Farm Equipment Technician Relationship Specialty Start Date End Date Amol Arthur DO [address] [facility] [address] [place] [address] PCP - General Internal Medicine 02/10/17
--- OUTSIDE RECORDS SUMMARY | 2024-12-25 15:41 | XMS_ITS | Clinical Summary ---
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 Gender Identity Not on file Sexual Orientation Not on file Plan of Treatment Health Maintenance Due Date Last Done Comments Hepatitis C Virus (HCV) Screening 1990 Human Papillomavirus (HPV) Immunization (1 - 3-dose series) 2005 Hepatitis B Immunization (1 of 3 - 19+ 3-dose series) 2009 Pap Smear 10/08/2011 Cervical Cancer Screening (CCS) 2020 HPV/Cotest 2020 SARS-COV-2 Immunization ( season) 2024 04/22/2021, 08/21/2020, 07/24/2020 Influenza Immunization (#1) 2025 10/0 01/2021, 03/11/2018 Respiratory Syncytial Virus (RSV) Immunization (Adult) (1 - 1-dose 75+ series) 2065 DTaP/Tdap/Td Immunization Discontinued 11/18/2016 TdaP Immunization Completed 11/18/2016 Meningococcal Immunization (ACWY) Aged Out No longer eligible based on patient's age to complete this topic Pneumococcal Immunization Combined Aged Out No longer eligible based on patient's age to complete this topic Rotavirus Immunization Aged Out No lo nger eligible based on patient's age to complete this topic
--- NOTE | 2024-12-25 16:32 | ED_ITS ---
HPI - Extremity Injury (Lower) General Chief Complaint: Extremity Injury, Lower Stated Complaint: left ankle injury Time Seen by Provider: 12/25/24 16:32 Focused HPI: This is a 34 year old female that presents to the ER for a fall today. Reports she was getting off of a chair she was standing on and fell and twisted her ankle, she felt a pop. Reports pain with weight bearing. Denies decreased ROM or numbness. GENERAL: Well-appearing, well-nourished, and in no acute distress. HEAD: Normocephalic, atraumatic. CHEST: Clear to auscultation. ?No respiratory distress. HEART: Regular rate and rhythm.? NEURO: ?Alert and oriented x3. Patient screened in triage and initial orders placed.? ?Additional care and disposition to be based upon?diagnostic testing and treatment. Related Data Allergies Allergy/AdvReac Type Severity Reaction Status Date / Time No Known Allergies Allergy Verified 12/25/24 18:33 Review of Systems Review of Systems: All systems reviewed & are unremarkable except as noted in HPI and below PMFSH Past Medical History Medical History Obesity, Class II, BMI 35-39.9 Anxiety Surgical History Surgical History H/O dilation and curettage History of tonsillectomy and adenoidectomy History of hip surgery Family History Family History Mother Hypertension Father Patient's father is in good health Sibling Patient's sister is in good health Family history of allergic disorder Social History Social History Smoking status: Never smoker Second hand tobacco smoke exposure: No Alcohol intake: never Substance use: never Substance use type: does not use Lack of Transportation: No Lack of Food: Never True Current Housing: I Have Housing Concerned About Future Housing: No Difficulty Paying Gas/Electric Bills: No Difficulty Paying for Meds: No Currently Unemployed: No Education: Bachelor's Degree Difficulty w/ Childcare or Family Care: No Living arrangements: with family Gender identity (if verbalized by the patient): Female Sexual Orientation (if Verbalized by the Patient): Straight or Heterosexual Spiritual care concerns: No Exam Narrative: GENERAL: Well-appearing, well-nourished, and in no acute distress. HEAD: Normocephalic, atraumatic. EYES: EOMI. EXTREMITIES: Normal range of motion. No edema or obvious deformity. Normal DP pulse. Normal sensation SKIN: Warm, dry, no rash. NEURO: No focal deficits. Alert and oriented x3. PSYCH: Normal mood and affect Course Vital Signs Vital signs: Vital Signs Pulse Rate 88 12/25/24 15:40 Respiratory Rate 16 12/25/24 15:40 Blood Pressure 136/88 12/25/24 15:40 Pulse Oximetry 99 12/25/24 15:40 Oxygen Delivery Room Air 12/25/24 15:40 Temperature 98.0 F 12/25/24 18:13 Pulse Rate 77 12/25/24 18:13 Respiratory Rate 18 12/25/24 18:13 Blood Pressure 133/83 12/25/24 18:13 Pulse Oximetry 100 12/25/24 18:13 Oxygen Delivery Room Air 12/25/24 15:40 Procedures Orthopedic Splinting/Casting Injury #1: Splinting/Casting Date: 12/25/24 Splinting/Casting Time: 18:41 Side: left Lower Extremity Injury Location: ankle Lower Extremity Immobilizer: Jayro wrap Pre-Procedure Neuro Vascular Exam: normal Post-Procedure Neuro Vascular Exam: normal Other Orthopedic Equipment: crutches MDM - Extremity Injury (Lower) MDM Narrative Medical decision making narrative: Patient presents to the emergency department after a fall today with injury to the left ankle. Left ankle and foot x-rays are without acute osseous abnormalities. Patient placed in Jayro wrap and given crutches. Instructed on further care of ankle sprain. She is to follow up with primary provider. She was given warnings to return to the ER Differential Diagnosis Differential diagnosis: Likely ankle sprain and strain, ankle fracture and other (Foot fracture) Imaging Data Radiologist's impression: ITS Impressions Ankle X-Ray 12/25/24 16:28 IMPRESSION: Soft tissue swelling, without acute fracture. Foot X-Ray 12/25/24 17:16 IMPRESSION: Soft tissue swelling without fracture. Critical Care Time Critical Care Time Critical Care Time: No Discharge Plan Discharge Clinical Impression: Left ankle sprain Qualifiers: Encounter type: initial encounter Involved ligament of ankle: unspecified ligament Qualified Code(s): S93.402A - Sprain of unspecified ligament of left ankle, initial encounter Patient Disposition: Home Condition: Stable Instructions: Ankle Sprain (ED) Additional Instructions: Return to the ER if you experience fever, redness and swelling of your extremity, numbness or any other symptoms that are concerning to you Wear JAYRO wrap and use crutches. No weight on the affected leg until able to bear weight without pain. Ice and elevate extremity. Pain medication as needed and directed. Follow up with your doctor for further care. Patient Language: Icelandic Prescriptions: No Action sertraline 100 mg tablet 50 mg PO HS Qty: 90 2RF fluconazole 150 mg tablet 150 mg PO ONCE Qty: 1 0RF Rx Instructions: as a single dose minoxidil 5 % solution 1 ml topical BID Qty: 60 3RF albuterol sulfate 90 mcg/actuation HFA aerosol inhaler 2 puff inhalation Q6H PRN (Reason: shortness of breath or wheezing) Qty: 18 1RF azithromycin [Zithromax Z-Xu] 250 mg tablet See Rx Instructions PO .COMPLEX Qty: 6 0RF Rx Instructions: take 500 mg today (day 1), then 250 mg for 4 days (days 2-5) PO lisinopril 20 mg tablet 20 mg PO DAILY Qty: 90 3RF Follow-up/Referrals: Moises Kessler DO [Primary Care Provider] -
[2024-12-25 18:13] VITALS: BP 133/83; PULSE 77; RESP 18; TEMP 36.7; O2SAT 100
--- OUTSIDE RECORDS SUMMARY | 2024-12-25 18:49 | XMS_ITS | Clinical Summary ---
Author Organization [facility] Address [address] [place] [address] Care Team Providers Care Construction Tech Name Role Phone Jerson Amol Landers DO Primary Care Provider Source Comments [facility],non-owned Affiliates and Associated Physician Practices is amultiple site organization consisting of ambulatory clinics and hospital sitesin [place], [place], [place] and [place]. This disclosure is being madepursuant to the Care Everywhere program and may not contain all information available regarding this patient. Last updated 18.[facility] Allergies No known active allergies Medications * [...] Comments Blood Pressure 110/64 07/11/2018 3:23 PM [facility] Pulse 80 07/11/2018 3:23 PM [facility] Temperature 36.9 C (98.4 F) 07/11/2018 3:23 PM [facility] Respiratory Rate 16 07/11/2018 3:23 PM [facility] Oxygen Saturation 98% 07/11/2018 3:23 PM [facility] Inhaled Oxygen Concentration - - Weight 81.6 kg (180 lb) 07/11/2018 3:23 PM [facility] Height 157.5 cm (5' 2) 07/11/2018 3:23 PM [facility] Body Mass Index 32.92 07/11/2018 3:23 PM [facility] Plan of Treatment Health Maintenance Due Date [...] patient's age to complete this topic Insurance [facility] AETNA [facility] [employer] Care Teams Construction Tech Relationship Specialty Start Date End Date Amol Arthur DO [id number] [facility] [address] [place] [address] PCP - General Internal Medicine 02/10/17
--- OUTSIDE RECORDS SUMMARY | 2024-12-25 18:49 | XMS_ITS | Clinical Summary ---
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
== END 2024-12-25 18:53 | disposition home or self-care (01) ==
LOC: ANHED 18:47
PROVIDERS: Emergency Provider Physician Assistant; PCP Internal Medicine
DX: S93.402A Sprain of unspecified ligament of left ankle, initial encounter (principal); W18.30XA Fall on same level, unspecified, initial encounter; F41.9 Anxiety disorder, unspecified
CPT/HCPCS: 73610; 73630; 99283

== ENCOUNTER 2025-05-01 11:07 | Emergency (ER) | payer BC, SELFPAY ==
[2025-05-01 11:31] VITALS: BP 125/100; PULSE 79; RESP 16; TEMP 36.3; O2SAT 100
--- NOTE | 2025-05-01 11:38 | ED_ITS ---
HPI - Abdominal Pain General Chief Complaint: Urogenital-Female Stated Complaint: Kidney Pain Time Seen by Provider: 05/01/25 11:40 Source: patient Mode of arrival: ambulatory Limitations: no limitations History of Present Illness HPI narrative: Victoria is a 34-year-old female patient presenting to the clinic today with complaints some right sided flank pain/low back pain. She reports she thinks she may have a kidney infection. Denies any burning with urination at this time. Took some azo and Tylenol yesterday. Rates her pain 6/10. Pain is constant and dull. No concerns for STIs. Denies any vaginal drainage. History of constipation in the past. Related Data Allergies Allergy/AdvReac Type Severity Reaction Status Date / Time No Known Allergies Allergy Verified 05/01/25 11:13 [facility] Past Medical History Medical History Obesity, Class II, BMI 35-39.9 Anxiety Surgical History Surgical History H/O dilation and curettage History of tonsillectomy and adenoidectomy History of hip surgery Family History Family History Mother Hypertension Father Patient's father is in good health Sibling Patient's sister is in good health Family history of allergic disorder Social History Social History Smoking status: Never smoker Second hand tobacco smoke exposure: No Alcohol intake: never Substance use: never Substance use type: does not use Lack of Transportation: No Lack of Food: Never True Current Housing: I Have Housing Concerned About Future Housing: No Difficulty Paying Gas/Electric Bills: No Difficulty Paying for Meds: No Currently Unemployed: No Education: Bachelor's Degree Difficulty w/ Childcare or Family Care: No Living arrangements: with family Gender identity (if verbalized by the patient): Female Sexual Orientation (if Verbalized by the Patient): Straight or Heterosexual Spiritual care concerns: No Comments At the time of my signature, I reviewed and agree with the nursing past medical, surgical, social, and family history. There is no relevant family history pertinent to the patient complaint. Exam Narrative: General: Well-developed, obese, in no apparent distress. Head: Normocephalic, atraumatic. Cardio: Regular rate and rhythm, s1 and s2 normal, no murmur appreciated. Resp: Clear to auscultation bilaterally, no rhonchi, rales, wheezing or rubs. Abdomen: Soft, pliable, bowel sounds present in all quadrants, non-tender to palpation, no organomegly, no CVAT tenderness. Course Course Emergency Course: Portions of this record may have been created with voice recognition software. Level of Care: Express Care Visit Vital Signs Vital signs: Vital Signs Temperature 36.3 C L 05/01/25 11:31 Pulse Rate 79 05/01/25 11:31 Respiratory Rate 16 05/01/25 11:31 Blood Pressure 125/100 H 05/01/25 11:31 Pulse Oximetry 100 05/01/25 11:31 Temperature 36.3 C L 05/01/25 11:31 Pulse Rate 79 05/01/25 11:31 Respiratory Rate 16 05/01/25 11:31 Blood Pressure 125/100 H 05/01/25 11:31 Pulse Oximetry 100 05/01/25 11:31 Vital signs reviewed MDM - Abdominal Pain MDM Narrative Medical decision making narrative: At the time of visit patient is resting comfortably on the exam table. Patient appears to be nontoxic. Complaints some right sided flank pain/low back pain. She reports she thinks she may have a kidney infection. Denies any burning with urination at this time. Took some azo and Tylenol yesterday. Rates her pain 6/10. Pain is constant and dull. No concerns for STIs. Denies any vaginal drainage. History of constipation in the past. No history kidney stones. Denies any fevers, chills, body aches. On exam patient has tenderness to palpation over the right flank but no CVAT tenderness, soft pliable, nondistended abdomen, nontender to palpation. Labs: Urinalysis shows trace of leukocytes and trace of blood. Plan: I suspect patient has possible UTI/right flank pain. Prescription for Macrobid was sent to the pharmacy. Flank pain may be muscular in nature so discussed using Tylenol and ibuprofen-may use heating pad or ice pack to the affected area. Supportive measures were discussed with the patient and they voiced understanding discharge instructions and agrees to treatment plan. Return precautions reviewed Differential Diagnosis Differential diagnosis: Likely abdominal pain, acute appendicitis, constipation, diverticulitis, endometriosis, gastroenteritis, pancreatitis and small bowel obstruction Lab Data Labs: Lab Results 05/01/25 Range/Units 11:49 POC Urine Color Yellow POC Urine Clarity Clear POC Urine pH 7.0 POC Ur Specif [place] 1.015 POC Urine Protein Negative (Negative) POC Ur Glucose (UA) Negative (Negative) POC Urine Ketones Negative (Negative) POC Urine Blood Trace (Negative) POC Urine Nitrite Negative (Negative) POC Urine Bilirubin Negative (Negative) POC Urine Urobilinogen 0.2 POC U Leukocyte Esteras Trace (Negative) Discharge Plan Discharge Clinical Impression: Flank pain, right side UTI (urinary tract infection) Qualifiers: Urinary tract infection type: acute cystitis Hematuria presence: with hematuria Qualified Code(s): N30.01 - Acute cystitis with hematuria Patient Disposition: Home Condition: Stable Instructions: Antibiotic Form, Urinary Tract Infection in Women (ED), Flank Pain (ED) Additional Instructions: Urine shows a trace of leukocytes and a trace of blood. We will send urine for culture. Other differentials would include constipation or kidney stone. Increase fluids and stay well hydrated Wipe front to back. May use wet wipes. Avoid tub baths If sexually active- pee before and after intercourse. Wear cotton panties Avoid tight clothing up against the genitals May take Tylenol/Motrin as needed for pain as discussed Follow up with your PCP in 1 week if symptoms persist. Patient Language: Barbadian Prescriptions: New nitrofurantoin monohyd/m-cryst [Macrobid] 100 mg capsule 100 mg PO Q12H 5 Days Qty: 10 0RF Rx Instructions: must administer with a meal/food fluconazole 150 mg tablet 150 mg PO ONCE Qty: 2 0RF Rx Instructions: as a single dose. May repeat in 72 hours if needed. No Action sertraline 100 mg tablet 50 mg PO HS Qty: 90 2RF albuterol sulfate 90 mcg/actuation HFA aerosol inhaler 2 puff inhalation Q6H PRN (Reason: shortness of breath or wheezing) Qty: 18 1RF lisinopril 20 mg tablet 20 mg PO DAILY Qty: 90 3RF Follow-up/Referrals: Moises Kessler DO [Primary Care Provider, Internal Medicine] Time of Disposition: 11:40 Quality NIHSS Nursing Documentation ED NIHSS nursing documentation: reviewed/agree
[2025-05-01 11:52] LABS: EDUAAPPEAR Clear; EDUABILI Negative (Negative); EDUABLOOD Trace (Negative); EDUACOLOR1 Yellow; EDUAGLUCOSE Negative (Negative); EDUAKETONE Negative (Negative); EDUALEUKO Trace (Negative); EDUANITRATE Negative (Negative); EDUAPH 7.0; EDUAPROTEIN Negative (Negative); EDUASPGRAVITY 1.015; EDUAUROBILI 0.2
== END 2025-05-01 11:48 | disposition home or self-care (01) ==
PROVIDERS: Emergency Provider Nurse Practitioner Family; PCP Internal Medicine
DX: R10.A1 Flank pain, right side (principal); N30.01 Acute cystitis with hematuria; E66.9 Obesity, unspecified; Z68.32 Body mass index [BMI] 32.0-32.9, adult; F41.9 Anxiety disorder, unspecified
CPT/HCPCS: 81003; 87086; 99213; G0463